=== PATIENT | female | born 1990 | race Two or more races ===

== ENCOUNTER 2025-06-21 05:24 | Emergency (ER) | payer OTHER ==
[~2025-06-21] VITALS: Ht 170.2 cm; Wt 74.8 kg
[2025-06-21 07:04] LABS: BASO % 0.3 % (0.1-1.2); EOS # 0.04 (0.04-0.54); EOS % 0.5 % (0.7-7.0); LYMPH # 1.52 (1.18-3.74); LYMPH % 20.7 % (19.3-53.1); MEAN PLATELET VOLUME 9.20 fl (9.4-12.4); MONO # 0.54 (0.24-0.82); MONO % 7.3 % (4.7-12.5); NEUT # 5.20 (1.56-6.13); NEUT % 70.8 % (34.0-71.1); RED CELL DISTRIBUTION WIDTH 13.7 % (11.6-14.4)
[2025-06-21 09:46] LABS: URINE APPEARANCE Turbid; URINE BILIRRUBIN Negative (NEGATIVE); URINE BLOOD Large; URINE COLOR Yellow; URINE GLUCOSE Negative (NEGATIVE); URINE KETONE Negative (NEGATIVE); URINE LEUKOCYTE Large; URINE NITRATE Positive; URINE PROTEIN 30 (NEGATIVE); URINE UROBILINOGEN 1.0 E.U./dl
[2025-06-21 09:48] LABS: URINE CAST 2.19 uL (0.0-1.40); URINE EPITHELIAL CELLS 21.9 uL (0.0-38.8); URINE RBC 270.7 uL (0.0-20.8); URINE WBC 5203.6 uL (0.0-23.2)
[2025-06-21 10:32] LABS: URINE BACTERIA > 9821.5 uL (0.0-1933)
[2025-06-21] MEDS ORDERED: PYRIDIUM200 MG PO (11:25)
[2025-06-21] MEDS ORDERED: PEPCID20 MG PO (11:25)
[2025-06-21] MEDS ORDERED: CIPRO500 MG PO (11:25)
== END 2025-06-21 11:46 | disposition home or self-care (01) ==
LOC: ER 05:24
PROVIDERS: General Practice
DX: N39.0 Urinary tract infection, site not specified (principal); N89.8 Other specified noninflammatory disorders of vagina; R32 Unspecified urinary incontinence; Z88.0 Allergy status to penicillin